=== PATIENT | male | born 1990 | race Hispanic/Latino ===

== ENCOUNTER 2017-08-23 14:17 | Emergency (ER) | payer OTHER ==
[~2017-08-23] VITALS: Ht 185.4 cm; Wt 90.9 kg
[2017-08-23 14:18] VITALS: BP 162/76
[2017-08-23] MEDS ORDERED: IBUP-1022 PO (14:41)
[2017-08-23] MEDS ORDERED: ROBA500T PO (17:43)
[2017-08-23] MEDS ORDERED: NAPR500T3 PO (17:43)
== END 2017-08-23 17:58 | disposition home or self-care (01) ==
LOC: M ED 14:17
DX: M62.830 Muscle spasm of back (principal); Z87.828 Personal history of other (healed) physical injury and trauma